=== PATIENT | female | born 1965 | race Caucasian/White ===

== ENCOUNTER 2017-03-05 20:23 | Emergency (ER) | payer OTHER ==
[~2017-03-05] VITALS: Ht 162.6 cm; Wt 95.8 kg
[~2017-03-05 20:23] MED LIST: ADVIL200 MG PO; ASPIRIN EC325 MG PO; ATACAND16 MG PO; ATORVASTATIN CA20 MG PO; CO Q-1010 MG PO; CO Q-10100 MG PO; CRANBERRY400 M1 PO; CYANOCOBALAM1000 MCG PO; EFFEXOR XR150 MG PO; FLEXERIL5 MG PO; GLUCOSAMINE CH1 EAC2 PO; KEFLEX500 MG PO; LEVAQUIN750 MG PO; PERCOCET 5/31 TABLET PO; RED YEAST RICE600 M1 PO; SYNTHROID125 MCG PO; VITAMIN B12 100MCG PO
[2017-03-05] MEDS ORDERED: ULTRAM50 MG PO (23:34)
[2017-03-06 00:16] VITALS: BP 137/94
== END 2017-03-06 00:17 | disposition home or self-care (01) ==
LOC: EME 20:23
PROC: 2W3DX1Z Immobilization of Left Lower Arm using Splint (ICD-10-PCS; principal; 2017-03-05)
DX: S52.515A Nondisplaced fracture of left radial styloid process, initial encounter for closed fracture (principal); M54.5 Low back pain; S60.229A Contusion of unspecified hand, initial encounter; M25.511 Pain in right shoulder; W18.30XA Fall on same level, unspecified, initial encounter
CPT/HCPCS: 72100; 73030; 73110; 73130; 99281; 99285